=== PATIENT | female | born 1955 | race Caucasian/White ===

== ENCOUNTER 2020-01-10 10:11 | Emergency (ER) | payer OTHER ==
[~2020-01-10] VITALS: Ht 175.3 cm; Wt 102.5 kg
[2020-01-10 10:23] VITALS: BP 130/59; Ht 175.3 cm; Wt 102.5 kg
== END 2020-01-10 13:45 | disposition left against medical advice (07) ==
LOC: ED 10:11
DX: Z53.21 Procedure and treatment not carried out due to patient leaving prior to being seen by health care provider (principal)

== ENCOUNTER 2020-03-15 14:49 | Emergency (ER) | payer OTHER ==
[~2020-03-15] VITALS: Ht 175.3 cm; Wt 99.3 kg
[2020-03-15 14:59] VITALS: Ht 175.3 cm; Wt 99.3 kg
[2020-03-15 15:47] LABS: CALCIUM 8.9 mg/dL (8.5-10.1); CARBON DIOXIDE 24.7 mmol/L (21-32); CHLORIDE SERUM 105 mmol/L (98-107); CREATININE SERUM 0.7 mg/dL (0.6-1.0); GFR1 > 60 mL/min; GLUCOSE SERUM 126 mg/dL (74-106); POTASSIUM SERUM 3.9 mmol/L (3.5-5.1); SODIUM SERUM 137 mmol/L (136-145)
[2020-03-15 15:49] LABS: BASOPHIL % 2.7 % (0-2); PLATELET COUNT 234 x10^3mcL (130-400); RED CELL DISTRIBUTION WIDTH 14.3 % (11.5-14.5)
[2020-03-15 15:51] LABS: ALKALINE PHOSPHATASE 78 U/L (46-116); ALT/SGPT 16 U/L (14-59); AST/SGOT 13 U/L (15-37); BILIRUBIN TOTAL 0.2 mg/dL (0.20-1.00); HDL CHOLESTEROL 37 mg/dL (40-60); LIPASE 261 IU/L (73-393); TOTAL PROTEIN, SERUM 7.5 g/dL (6.4-8.2)
[2020-03-15 15:52] LABS: ALBUMIN 3.1 g/dL (3.4-5.0); CHOLESTEROL 126 mg/dL (<200)
[2020-03-15 16:00] LABS: microscopic required? NO
[2020-03-15 16:09] LABS: UA SPECIFIC GRAVITY 1.025 (1.005-1.035); urine erythrocyte NEGATIVE (NEGATIVE)
[2020-03-15 16:24] LABS: AMPHETAMINE QUAL UR NONE DETECTED (See below)
[2020-03-15 18:33] VITALS: BP 105/66
== END 2020-03-15 18:33 | disposition home or self-care (01) ==
LOC: ED 14:49
PROVIDERS: Emergency Medicine
DX: K80.50 Calculus of bile duct without cholangitis or cholecystitis without obstruction (principal); J98.11 Atelectasis; E78.00 Pure hypercholesterolemia, unspecified; E66.9 Obesity, unspecified; F17.200 Nicotine dependence, unspecified, uncomplicated; F15.10 Other stimulant abuse, uncomplicated; Z68.32 Body mass index [BMI] 32.0-32.9, adult; Z20.828 Contact with and (suspected) exposure to other viral communicable diseases; Z88.1 Allergy status to other antibiotic agents; Z88.2 Allergy status to sulfonamides
CPT/HCPCS: 83880; 99406; J0500; J7030; Q0092; U0003-CS